=== PATIENT | female | born 1965 | race Two or more races ===

== ENCOUNTER 2017-06-20 22:51 | Emergency (ER) | payer BC ==
[2017-06-20] MEDS: HYDROCODONE/APAP (5/325) TAB PO (23:41)
[2017-06-20] MEDS: KETOROLAC 60 MG INJ IM (23:41)
== END 2017-06-21 01:22 | disposition home or self-care (01) ==
LOC: FTE 22:51
DX: M25.512 Pain in left shoulder (principal)
CPT/HCPCS: 73030; 96372; 99284-25